=== PATIENT | male | born 1955 | race Caucasian/White ===

== ENCOUNTER 2017-01-08 08:45 | Day surgery (SDC) | payer MEDICARE, BC ==
--- NOTE | 2017-01-08 09:37 | ERNOTE ---
Integumentary HPI - Narrative Date of Service: 01/08/17 - General Presenting Symptoms: other - abscess Time Seen by Provider: 01/08/17 09:24 Source: patient Exam Limitations: no limitations - Immun/Allergies/Home Medications Immunizations: IMMUNIZATION HX Immunizations Up to Date Yes History of Influenza Vaccine Yes Hx Pneumococcal Vaccination Yes Allergies/Adverse Reactions: Allergies Allergy/AdvReac Type Severity Reaction Status Date / Time chocolate flavor Allergy Sneezing Verified 10/20/13 17:13 Home Medications: HOME MEDICATIONS Aspirin [Aspir 81] 81 mg PO DAILY 07/21/12 [Last Taken Unknown] Carvedilol [Coreg] 25 mg PO BID 07/21/12 [Last Taken Unknown] Citalopram Hydrobromide [Celexa] 10 mg PO HS 07/21/12 [Last Taken Unknown] Simvastatin 20 mg PO HS 07/21/12 [Last Taken Unknown] Valsartan [Diovan] 320 mg PO DAILY 07/21/12 [Last Taken Unknown] Levothyroxine Sodium [Synthroid] 50 mcg PO DAILY 10/20/13 [Last Taken Unknown] Ascorbic Acid [Vitamin C] 500 mg PO DAILY 06/29/14 [Last Taken Unknown] Insulin Aspart [Novolog Flexpen] 30 unit SQ AC 06/29/14 [Last Taken Unknown] Insulin Glargine,Hum.rec.anlog [Lantus] 60 unit SQ DAILY 06/29/14 [Last Taken Unknown] Ubidecarenone [Co Q-10] 50 mg PO DAILY 06/29/14 [Last Taken Unknown] - History of Present Illness Narrative: patient has been having a painful swelling near his rectum for a little over 2 weeks. It had drained so he thought it was getting better but since then it has worsened. Pain noted here. He has felt feverish. No vomiting. No CP. Some cough. No abdominal pain. Pain worse with any palpation. Has not seen anyone else for this. Location: Reports: other - perineum Quality: Reports: painful Severity: moderate Modifying Factors - (Improves): Reports: nothing Modifying Factors - (Worsens): Reports: other - palpation Associated Symptoms: Reports: fever Prior Treatment: Denies: recently seen Review of Systems - Review of Systems Constitutional: Absent: fever Respiratory: Present: cough Cardiology: Absent: chest pain Gastrointestinal/Abdominal: Absent: abdominal pain Skin: Present: See HPI Neurological: Absent: weakness All Other Systems: All systems neg except as marked - Patient's Past Medical History Patient History - Medical: Diabetes Type 2 Insulin Dependent Patient History - Cardiac/Respiratory: Hypertension, Sleep Apnea Patient History - Cancer: No Hx of Cancer Patient History - Surgical Procedures: Amputation, Other Patient History - Other: None - Family History Mother Family History - Medical: Father Family History - Medical: - Social History Living Situations: home Abuse History: No History of abuse Psych History: Hx of Depression Smoking Status: Never smoker Do you dip or chew tobacco: Yes - chewing tobacco Alcohol Use: none Drug Use: none - Immunizations Immunizations Up to Date: Yes Hx Pneumococcal Vaccination: Yes History of Influenza Vaccine: Yes Physical Exam - Physical Exam General Appearance: Present: alert, no apparent distress Eye Exam: Normal inspection: bilateral - no conjuntival injection Ears, Nose, Throat: Present: normal ENT inspection Neck: Present: normal inspection Respiratory: Present: no respiratory distress, normal breath sounds, no accessory muscle use Cardiovascular/Chest: Present: regular rate, rhythm Gastrointestinal/Abdominal: Present: normal bowel sounds, nontender, soft Back Exam: Absent: CVA tenderness (R), CVA tenderness (L) Extremity Exam: Present: no edema Neurological Exam: Present: alert, normal mood/affect, no motor/sensory deficits Skin Exam: Present: other - 4cm abscess right perineum which abuts the rectum and tenderness is noted to the rectum too. ED Progress - Results and Orders Patient's Lab Results:: I have reviewed the patient's lab results. - Vital Signs Patient's Vital Signs:: I have reviewed the patient's vital signs. Vital Signs: Vital Signs 01/08/17 08:56 Temperature 36.6 C Pulse Rate 70 Respiratory 18 Rate Blood Pressure 144/65 O2 Sat by Pulse 99 Oximetry - Progress/Reassessment Chief Complaint: Cellulitis Progress Note-Subjective: 01/08/17 10:[address] Padgett who saw the patient in the ED and the patient will be taken to surgery. Departure Clinical Impression: Abscess - Departure Disposition: [facility] Condition: Stable Referrals: Mat Manjarrez MD [Primary Care Provider] -
[2017-01-08 10:05] LABS: Hematocrit 45.7 % (42.0-52.0); Mean Cell Volume 94.4 fl (78-100); Mean Corpuscular Hgb Conc 32.8 g/dl (32-36); Mean Platelet Volume 10.5 fl (6.0-9.5); Platelet Count 259 K/mm3 (150-450); Red Blood Count 4.84 M/mm3 (4.7-6.0); Red Cell Distribution Width 12.7 % (11.5-14.0); White Blood Count 8.5 K/mm3 (4.0-10.5)
[2017-01-08] MEDS ORDERED: RINGERS SOLUTION,LACTATED 1,000 ML IV PRN (10:09)
[2017-01-08 10:17] LABS: Anion Gap 13.4 mmol/L (6.8-13.8); BUN/Creatinine Ratio 14.5 (9.0-21.6); Calcium * 8.8 mg/dL (7.9-10.9); Carbon Dioxide 26.8 mmol/L (24-32.6); Estimated Creat Clear 44.3; Potassium 4.2 mmol/L (3.4-4.6)
--- OUTSIDE RECORDS SUMMARY | 2017-01-08 10:33 | XMS REPORT | Continuity of Care Document ---
:1955 Author Organization [facility] ([facility]) Address [address] [place] [address] Phone [phone] Care Team Providers Name Role Phone LokiMat Primary Care Provider [phone] Source Comments This disclosure is being made pursuant to the Care Everywhere program, applicable federal and state laws, and may not contain all informaitonavailable regarding this patient.[facility] ([facility]) Active Allergies and Adverse Reactions Allergen Noted Date Severity Reactions Comments Chocolate Flavor OTHER sneezing Current Medications Prescription Sig. Disp. Refills Start Date End Date Status ascorbic acid (VITAMIN Take 1,000 mg by mouth Active C) 1,000 mg tablet daily aspirin 81 mg EC Take 81 mg by mouth Active tablet daily simvastatin 40 mg Take 40 mg by mouth Active tablet every evening citalopram 10 mg Take 10 mg by mouth Active tablet daily carvedilol 25 mg Take 25 mg by mouth 2 Active tablet times daily with meals coenzyme Q10 PO Active insulin glargine Inject subcutaneously Active (LanTUS SOLOSTAR) 100 at bedtime unit/mL (3 mL) injection pen valsartan (DIOVAN) 320 Take 320 mg by mouth Active mg tablet daily insulin aspart Inject subcutaneously Active (NovoLOG FLEXPEN) 100 3 times daily before unit/mL (3 mL) meals injection pen SUPPLY BD ULTRA-FINE Inject subcutaneously Active SINDY 32 x 4 MM pen 2 times daily needle cephalexin 500 mg 11/06/2015 Active capsule levothyroxine 50 mcg 09/09/2015 Active tablet Active Problems Problem Noted Date History of retinal detachment 05/07/2015 Lower limb amputation, foot 04/12/2008 Unspecified osteomyelitis, ankle and foot 03/13/2008 Social History Tobacco Use Types Packs/Day Years Used Date Never Smoker Smokeless Tobacco: Current User Chew Tobacco Cessation:Ready to Quit: No; Counseling Given: Yes Comments: Alcohol Use Drinks/Week oz/Week Comments No rare Last Filed Vital Signs Vital Sign Reading Time Taken Blood Pressure 116/72 05/03/2015 7:00 PM CDT Pulse 79 05/03/2015 7:00 PM CDT Temperature 36.3 C (97.3 F) 05/03/2015 6:30 PM CDT Respiratory Rate 16 05/03/2015 6:30 PM CDT Height 1.74 m (5' 8.5") 05/03/2015 2:38 PM CDT Weight 107.502 kg (237 lb) 05/03/2015 2:38 PM CDT Body Mass Index 35.51 05/03/2015 2:38 PM CDT Oxygen Saturation 92% 05/03/2015 6:30 PM CDT Plan of Care Health Maintenance Due Date Last Done Comments HCV Screening 1955 Hepatitis B Vaccine (1 of 3 - Primary Series) 1955 Tdap Vaccine 1964 Lipid Disorder Screening 1971 Td Vaccine 1971 Pneumococcal Vaccine (1 of 1 - PPSV23) 1972 Colonoscopy 2003 Prostate Cancer Screening 2003 Zoster Vaccine 2013 Influenza Vaccine: Seasonal (#1) 04/13/2016 Results from Last 3 Months Not on file
--- OUTSIDE RECORDS SUMMARY | 2017-01-08 10:34 | XMS REPORT | Continuity of Care Document ---
:1955 Author Organization [facility] ([facility]) Address [address] [place] [address] Phone [phone] Care Team Providers Name Role Phone LokiMat Primary Care Provider [phone] Source Comments This disclosure is being made pursuant to the Care Everywhere program, applicable federal and state laws, and may not contain all informaitonavailable regarding this patient.[facility] ([facility]) Active Allergies and Adverse Reactions Allergen Noted [...]
[2017-01-08] MEDS ORDERED: RINGERS SOLUTION,LACTATED 1,000 ML IV ONE (11:11)
[2017-01-08] MEDS ORDERED: CEFOXITIN SODIUM 2 GM in DEXTROSE 5 % IN WATER 100 ML IV PRN ×2 (12:19)
--- NOTE | 2017-01-08 12:50 | HP ---
Chief Complaint - Chief Complaint Date of Service: 01/08/17 Time of Service: 09:35 Chief Complaint: pain and dranage from rectum History of Present Illness: Has had painful swelling near the anus for 2 weeks. Has become worse and started to drain bloody pus---wears a pad - Patient's Past Medical History Patient History - Medical: Cataracts, Diabetes Type 2 Insulin Dependent, Depression Patient History - Cardiac/Respiratory: Hypertension, Sleep Apnea Patient History - Cancer: No Hx of Cancer Patient History - Surgical Procedures: Amputation, Cataracts, Other Patient History - Other: None - Family History Mother Family History - Medical: , No pertinent hx Family History - Cardiac/Respiratory: No pertinent hx Family History - Cancer: No pertinent family hx Father Family History - Medical: , Diabetes Type 2 Family History - Cardiac/Respiratory: No pertinent hx Family History - Cancer: No pertinent family hx - Social History Living Situations: home Abuse History: No History of abuse Psych History: Hx of Depression Smoking Status: Never smoker Do you dip or chew tobacco: Yes - chewing tobacco Alcohol Use: none Drug Use: none - Immunizations Immunizations Up to Date: Yes Hx Pneumococcal Vaccination: Yes History of Influenza Vaccine: Yes Review Of Systems (GEN) - Review of Systems Generalized/Overall Review: Absent: Chills, Fever EENTM: Present: No Symptoms Reported Respiratory: Present: No Symptoms Reported Cardiac: Present: No Symptoms Reported Abdominal: Present: Other - swelling and drainage from around rectum. Absent: Nausea, Vomiting, Abdominal Pain Musculoskeletal: Present: Other - chronic foot problems, with amputations and prior open ulcers---currently healed Neurological: Present: Parasthesia Skin: Present: No Symptoms Reported Immunizations: IMMUNIZATION HX Immunizations Up to Date Yes History of Influenza Vaccine Yes Hx Pneumococcal Vaccination Yes Allergies/Adverse Reactions: Allergies Allergy/AdvReac Type Severity Reaction Status Date / Time chocolate flavor Allergy Sneezing Verified 01/08/17 10:52 Home Medications: HOME MEDICATIONS Aspirin [Aspir 81] 81 mg PO DAILY 07/21/12 [Last Taken Unknown] Carvedilol [Coreg] 25 mg PO BID 07/21/12 [Last Taken 01/08/17 08:00] Citalopram Hydrobromide [Celexa] 10 mg PO HS 07/21/12 [Last Taken Unknown] Simvastatin 20 mg PO HS 07/21/12 [Last Taken Unknown] Valsartan [Diovan] 320 mg PO DAILY 07/21/12 [Last Taken Unknown] Levothyroxine Sodium [Synthroid] 50 mcg PO DAILY 10/20/13 [Last Taken Unknown] Ascorbic Acid [Vitamin C] 500 mg PO DAILY 06/29/14 [Last Taken Unknown] Insulin Aspart [Novolog Flexpen] 30 unit SQ AC 06/29/14 [Last Taken Unknown] Insulin Glargine,Hum.rec.anlog [Lantus] 60 unit SQ DAILY 06/29/14 [Last Taken Unknown] Ubidecarenone [Co Q-10] 50 mg PO DAILY 06/29/14 [Last Taken Unknown] Exam - Exam Vital Signs: Vital Signs - Last Taken Temp 37.0 C 01/08/17 12:20 Pulse 76 01/08/17 12:20 Resp 16 01/08/17 12:20 BP 115/73 01/08/17 12:20 Pulse Ox 92 01/08/17 12:20 Constitutional: Present: Alert, Oriented x3, Cooperative, No distress ENT Exam: Present: normal ENT inspection, other - Mallampati 3 airway Eye Exam: bilateral eye: other - disconjugate gaze Neck: Present: full range of motion, normal inspection Back Exam: Present: no CVA tenderness Respiratory: Present: lungs clear, normal breath sounds Cardiovascular/Chest: Present: regular rate, rhythm, no murmur Peripheral Pulses: carotid (R): 4+, carotid (L): 4+ Abdomen: Present: Normal bowel sounds, soft, nontender /Rectal: Present: Other - 4 cm benito-rectal abscess in the right anterior quadrant with bloody/purulent drainage Extremity: Present: normal range of motion, other - right forefoot amputation, patient reports no open areas. Absent: lower extremity edema Skin Exam: Present: warm/dry, pallor Neurologic: Present: shipping support II-XII nml as tested, normal cerebellar test, other - light touch defecit lower extremities Appearance: Present: appropriate appearance, appropriate insight Eye contact: Present: cooperative, good eye contact, normal speech Thoughts: Present: normal thought pattern Diagnostic Studies: Abnormal Lab Results 01/08/17 01/08/17 Range/Units 09:55 09:55 MPV 10.5 H (6.0-9.5) fl Immature Gran % (Auto) 0.50 H (0.001-0.429) % Immature Gran # (Auto) 0.04 H (0.000-0.0310) K/mm3 Lymphocytes % 17.7 L (20-51) % Sodium 143 H (132-142) mmol/L Plasma Sodium 144 H (130-142) mmol/L Chloride 107 H (97-106) mmol/L BUN 24 H (6-23) mg/dL Creatinine 1.65 H (0.4-1.4) mg/dL Est GFR (Non-Af Amer) 45 L (60-130) mL/min Random Glucose 145 H (70-110) mg/dL Laboratory Results WBC 8.5 K/mm3 (4.0-10.5) 01/08/17 09:55 RBC 4.84 M/mm3 (4.7-6.0) 01/08/17 09:55 Hgb 15.0 gm/dL (13.5-18.0) 01/08/17 09:55 Hct 45.7 % (42.0-52.0) 01/08/17 09:55 MCV 94.4 fl (78-100) 01/08/17 09:55 MCH 31.0 pg (27-31) 01/08/17 09:55 MCHC 32.8 g/dl (32-36) 01/08/17 09:55 RDW 12.7 % (11.5-14.0) 01/08/17 09:55 Plt Count 259 K/mm3 (150-450) 01/08/17 09:55 MPV 10.5 fl (6.0-9.5) H 01/08/17 09:55 Immature Gran % (Auto) 0.50 % (0.001-0.429) H 01/08/17 09:55 Immature Gran # (Auto) 0.04 K/mm3 (0.000-0.0310) H 01/08/17 09:55 Neutrophils % 71.0 % (42-75.0) 01/08/17 09:55 Lymphocytes % 17.7 % (20-51) L 01/08/17 09:55 Monocytes % 8.2 % (0.0-9) 01/08/17 09:55 Eosinophils % 2.1 % (0.0-3.0) 01/08/17 09:55 Basophils % 0.5 % (0.0-1.0) 01/08/17 09:55 Nucleated RBC % 0.0 k/mm3 (0-1) 01/08/17 09:55 Neutrophils # 6.0 K/mm3 (1.3-6.0) 01/08/17 09:55 Lymphocytes # 1.5 k/mm3 (1.5-3.5) 01/08/17 09:55 Monocytes # 0.7 k/mm3 (0.0-1.0) 01/08/17 09:55 Eosinophils # 0.2 k/mm3 (0.0-0.7) 01/08/17 09:55 Absolute Basophils 0.0 k/mm3 (0.0-0.1) 01/08/17 09:55 Sodium 143 mmol/L (132-142) H 01/08/17 09:55 Plasma Sodium 144 mmol/L (130-142) H 01/08/17 09:55 Potassium 4.2 mmol/L (3.4-4.6) 01/08/17 09:55 Chloride 107 mmol/L (97-106) H 01/08/17 09:55 Carbon Dioxide 26.8 mmol/L (24-32.6) 01/08/17 09:55 Anion Gap 13.4 mmol/L (6.8-13.8) 01/08/17 09:55 BUN 24 mg/dL (6-23) H 01/08/17 09:55 Creatinine 1.65 mg/dL (0.4-1.4) H 01/08/17 09:55 Est GFR (Non-Af Amer) 45 mL/min (60-130) L 01/08/17 09:55 BUN/Creatinine Ratio 14.5 (9.0-21.6) 01/08/17 09:55 Random Glucose 145 mg/dL (70-110) H 01/08/17 09:55 Calcium 8.8 mg/dL (7.9-10.9) 01/08/17 09:55 Assessment/Plan - Assessment/Plan (1) Benito-rectal abscess Assessment: Will need OR for I&D. Discussed and consent obtained. SCD's and pre-op Mefoxin IV. Will do through ambulatory surgery Problem: Acute
[2017-01-08] MEDS ORDERED: BUPIVACAINE HCL/EPINEPHRINE 50 ML VIAL IJ ONE ×2 (13:17)
[2017-01-08 14:34] VITALS: BP 126/78
--- NOTE | 2017-01-08 16:16 | OR ---
Operative Report - Dictated Report Narrative: OPERATIVE REPORT DATE OF OPERATION: 01/08/2017 PREOPERATIVE DIAGNOSIS: Perirectal abscess POSTOPERATIVE DIAGNOSIS: 4 x 4 centimeter perirectal abscess OPERATION: Incision and drainage of perirectal abscess with packing SURGEON: Jaxon Padgett MD ANESTHESIA: MAC/local Roddy Hernandez CRNA INDICATIONS FOR PROCEDURE: The patient is a 61-year-old diabetic male who presented to the emergency room with a two-week history of tender swelling near the anus. The area began to drain purulent bloody material. He has a perirectal abscess and is brought for drainage. FINDINGS: 4 x 4 centimeter perirectal abscess in the right anterior quadrant. No evidence of connection to the rectum itself. NARRATIVE OF PROCEDURE: The patient was identified preoperatively and prior to the administration of anesthetic a multidisciplinary timeout was observed. The patient was placed in the left lateral position and intravenous sedation administered. 2 g of intravenous Mefoxin were administered. The perineum was prepped with Betadine solution and isolated with 4 sterile towels. The remainder the patient was covered with a sterile disposable drape. There was a 4 x 4 centimeter fluctuant area in the right anterior quadrant with a point of spontaneous drainage 1.5 cm from the anal verge and 1 cm from the median raphae. Digital rectal exam revealed no mass and produced no additional purulence. The area was infiltrated with 0.5% Marcaine with epinephrine. A small probe was gently placed into the spontaneous opening and the extent of the cavity ascertained. A cruciate skin incision was made. The abscess cavity was then irrigated with 1 L of saline. The cavity was inspected and gently explored with a hemostat. There were no additional loculations. The abscess cavity was superficial, did not involve the sphincter musculature, and did not track toward the examining finger in the rectum. The cavity appeared hemostatic. Sponge, blade and instrument counts were correct. The cavity was packed with 2 inch iodoform gauze. A dressing of ABDs and mesh pants was applied. The operative procedure was terminated at this point. The patient tolerated the anesthetic and procedure well without complication. He was transferred back to the ambulatory surgery area awake and in stable condition. The patient remained stable throughout a period of postoperative observation. He denied discomfort, was able to tolerate po intake and was up without assistance. I shared the operative findings with him and his . He was discharged home with instructions to change the pad as needed. He is to resume those medications as listed in the history and physical exam. He was given a prescription for Augmentin 875/125 mg #14 1 po BID and Percocet 5/325 mg #16 1 po Q4-6hrs prn pain. He has phone numbers to call for questions or problems and a return office appointment was made for 01/09/2017 at 10 AM. Reviewed and electronically signed
== END 2017-01-08 10:31 | disposition home or self-care (01) ==
LOC: CANPREER → ER 08:45 → AMB 10:30
PROVIDERS: ATTEND Surgery
PROC: 0D9P3ZZ Drainage of Rectum, Percutaneous Approach (ICD-10-PCS; principal; 2017-01-08 12:00)
DX: K61.1 Rectal abscess (principal); I10 Essential (primary) hypertension; E11.9 Type 2 diabetes mellitus without complications; F32.9 Major depressive disorder, single episode, unspecified; F17.200 Nicotine dependence, unspecified, uncomplicated; Z68.42 Body mass index [BMI] 45.0-49.9, adult

== ENCOUNTER 2017-08-12 11:28 | Emergency (ER) | payer MEDICARE, BC ==
--- NOTE | 2017-08-12 13:01 | ERNOTE ---
Medical Problem HPI - General Chief Complaint: Diabetes Related Problem Time Seen by Provider: 08/12/17 12:49 - Immun/Allergies/Home Medications Immunizations: IMMUNIZATION HX Immunizations Up to Date Yes History of Influenza Vaccine Yes Hx Pneumococcal Vaccination Yes Allergies/Adverse Reactions: Allergies chocolate flavor Allergy (Verified 01/08/17 10:52) Sneezing Home Medications: HOME MEDICATIONS Aspirin [Aspir 81] 81 mg PO DAILY 07/21/12 [Last Taken Unknown] Carvedilol [Coreg] 25 mg PO BID 07/21/12 [Last Taken 01/08/17 08:00] Citalopram Hydrobromide [Celexa] 10 mg PO HS 07/21/12 [Last Taken Unknown] Simvastatin 20 mg PO HS 07/21/12 [Last Taken Unknown] Valsartan [Diovan] 320 mg PO DAILY 07/21/12 [Last Taken Unknown] Levothyroxine Sodium [Synthroid] 50 mcg PO DAILY 10/20/13 [Last Taken Unknown] Ascorbic Acid [Vitamin C] 500 mg PO DAILY 06/29/14 [Last Taken Unknown] Insulin Aspart [Novolog Flexpen] 30 unit SQ AC 06/29/14 [Last Taken Unknown] Insulin Glargine,Hum.rec.anlog [Lantus] 60 unit SQ DAILY 06/29/14 [Last Taken Unknown] Ubidecarenone [Co Q-10] 50 mg PO DAILY 06/29/14 [Last Taken Unknown] - History of Present History Narrative: Patient had a check up appointment with his doctor this morning and was fasting for that (only had a couple of toast last night for dinner), he still took his Lantus and novolog this morning and was found to have a glucose of <35 at the PCP's office, after receiving food he feels back to normal, has no concerns Review of Systems - Review of Systems Constitutional: Absent: recent illness, fever EYE: Absent: vision changes ENT: Absent: nose congestion, sore throat Respiratory: Absent: shortness of breath Cardiology: Absent: chest pain Gastrointestinal/Abdominal: Absent: nausea, vomiting, abdominal pain Musculoskeletal: Present: no symptoms reported Neurological: Absent: headache - Patient's Past Medical History Patient History - Medical: Cataracts, Diabetes Type 2 Insulin Dependent, Depression Patient History - Cardiac/Respiratory: Hypertension, Sleep Apnea Patient History - Cancer: No Hx of Cancer Patient History - Surgical Procedures: Amputation, Cataracts, Other Patient History - Other: None - Family History Mother Family History - Medical: , No pertinent hx Family History - Cardiac/Respiratory: No pertinent hx Family History - Cancer: No pertinent family hx Father Family History - Medical: , Diabetes Type 2 Family History - Cardiac/Respiratory: No pertinent hx Family History - Cancer: No pertinent family hx - Social History Living Situations: home Abuse History: No History of abuse Psych History: Hx of Depression Smoking Status: Never smoker Do you dip or chew tobacco: Yes - Immunizations Immunizations Up to Date: Yes Hx Pneumococcal Vaccination: Yes History of Influenza Vaccine: Yes Physical Exam - Physical Exam General Appearance: Present: wd/wn, alert, no apparent distress Head Exam: Present: normal inspection, no evidence of injury Respiratory: Present: no respiratory distress, normal breath sounds, no accessory muscle use, lungs clear Cardiovascular/Chest: Present: regular rate, rhythm, no murmur Gastrointestinal/Abdominal: Present: normal bowel sounds Neurological Exam: Present: alert, oriented, normal mood/affect Skin Exam: Present: normal color, warm/dry ED Progress - Vital Signs Patient's Vital Signs:: I have reviewed the patient's vital signs. Vital Signs: Vital Signs 08/12/17 08/12/17 11:36 12:51 Temperature 36.4 C L Pulse Rate 91 91 Respiratory 16 Rate Blood Pressure 114/72 O2 Sat by Pulse 95 Oximetry - Progress/Reassessment Chief Complaint: Diabetes Related Problem Departure Clinical Impression: Hypoglycemia due to type 2 diabetes mellitus - Departure Disposition: Home self-care Condition: Stable Instructions: Hypoglycemia, [id number] Additional Instructions: if you are planing on fasting do not take your short acting insulin check your blood sugars again at home Referrals: Mat Manjarrez MD [Primary Care Provider] -
[2017-08-12 13:09] VITALS: BP 112/78
== END 2017-08-12 13:05 | disposition home or self-care (01) ==
LOC: ER 11:28
DX: E11.649 Type 2 diabetes mellitus with hypoglycemia without coma (principal)

== ENCOUNTER 2017-10-04 19:05 | Emergency (ER) | payer MEDICARE, BC ==
[2017-10-04] MEDS ORDERED: SULFAMETHOXAZOLE/TRIMETHOPRIM 1 TAB TABLET PO ONE (19:28)
[2017-10-04] MEDS ORDERED: SULFAMETHOXAZOLE/TRIMETHOPRIM 1 TAB TABLET ONE (19:30)
[2017-10-04 19:37] VITALS: BP 143/70
--- NOTE | 2017-10-04 19:39 | ERNOTE ---
Head Injury HPI - Narrative Date of Service: 10/04/17 - General Time Seen by Provider: 10/04/17 19:24 - Immun/Allergies/Home Medications Immunization: IMMUNIZATION HX Immunizations Up to Date Yes History of Influenza Vaccine No Hx Pneumococcal Vaccination Yes Allergies/Adverse Reactions: Allergies Allergy/AdvReac Type Severity Reaction Status Date / Time chocolate flavor Allergy Sneezing Verified 10/04/17 19:20 Home Medications: HOME MEDICATIONS Aspirin [Aspir 81] 81 mg PO DAILY 07/21/12 [Last Taken Unknown] Carvedilol [Coreg] 25 mg PO BID 07/21/12 [Last Taken 01/08/17 08:00] Citalopram Hydrobromide [Celexa] 10 mg PO HS 07/21/12 [Last Taken Unknown] Simvastatin 20 mg PO HS 07/21/12 [Last Taken Unknown] Valsartan [Diovan] 320 mg PO DAILY 07/21/12 [Last Taken Unknown] Levothyroxine Sodium [Synthroid] 50 mcg PO DAILY 10/20/13 [Last Taken Unknown] Ascorbic Acid [Vitamin C] 500 mg PO DAILY 06/29/14 [Last Taken Unknown] Insulin Aspart [Novolog Flexpen] 30 unit SQ AC 06/29/14 [Last Taken Unknown] Insulin Glargine,Hum.rec.anlog [Lantus] 60 unit SQ DAILY 06/29/14 [Last Taken Unknown] Ubidecarenone [Co Q-10] 50 mg PO DAILY 06/29/14 [Last Taken Unknown] Sulfamethoxazole/Trimethoprim [Bactrim Ds] 1 tab PO BID #28 tab 10/04/17 [Last Taken Unknown] oxyCODONE HCL/ACETAMINOPHEN [Percocet 5 MG/325 MG] 1 tab PO Q4H PRN #10 tab [Last Taken Unknown] - History of Present Illness Narrative: Pt. comes in with c/o lump on the R side of his neck that started small a few days ago but became large starting today. Pt. states that it is painful but denies any fever, SOB, CP, NVD, alleviating factors or prehospital treatment. Pt. has had abscesses in the past but they are usually softer. Review of Systems - Review of Systems Constitutional: Present: no symptoms reported. Absent: fever, chills, weakness , fatigue, malaise EYE: Present: no symptoms reported ENT: Present: no symptoms reported Respiratory: Present: no symptoms reported. Absent: shortness of breath, cough , wheezing Cardiology: Present: no symptoms reported. Absent: chest pain, palpitations, edema Gastrointestinal/Abdominal: Present: no symptoms reported. Absent: nausea, vomiting, diarrhea Genitourinary: Present: no symptoms reported. Absent: frequency, decreased urinary output Musculoskeletal: Present: no symptoms reported. Absent: back pain, joint pain Skin: Present: lumps - R lateral soft tissue neck Neurological: Present: no symptoms reported. Absent: headache, dizziness/light- headedness, weakness, numbness, tingling Hematologic/Lymphatic: Present: no symptoms reported. Absent: easy bruising, easy bleeding All Other Systems: All systems neg except as marked - Patient's Past Medical History Patient History - Medical: Cataracts, Diabetes Type 2 Insulin Dependent, Depression Patient History - Cardiac/Respiratory: Hypertension, Sleep Apnea Patient History - Cancer: No Hx of Cancer Patient History - Surgical Procedures: Amputation, Cataracts, Other Patient History - Other: None - Family History Mother Family History - Medical: , No pertinent hx Family History - Cardiac/Respiratory: No pertinent hx Family History - Cancer: No pertinent family hx Father Family History - Medical: , Diabetes Type 2 Family History - Cardiac/Respiratory: No pertinent hx Family History - Cancer: No pertinent family hx - Social History Living Situations: home Abuse History: No History of abuse Psych History: Hx of Depression Smoking Status: Never smoker Do you dip or chew tobacco: Yes - 1 can/ day Alcohol Use: none Drug Use: none - Immunizations Immunizations Up to Date: Yes Hx Pneumococcal Vaccination: Yes History of Influenza Vaccine: No Physical Exam - Physical Exam General Appearance: Present: wd/wn, alert, no apparent distress Head Exam: Present: normal inspection, no evidence of injury Eye Exam: Normal inspection: bilateral Neck: Present: normal inspection, supple, full range of motion, tender lateral - over abscess Respiratory: Present: no respiratory distress, normal breath sounds, no accessory muscle use, chest nontender, lungs clear Cardiovascular/Chest: Present: regular rate, rhythm, no murmur, normal peripheral pulses Gastrointestinal/Abdominal: Present: normal bowel sounds Back Exam: Present: normal inspection Extremity Exam: Present: normal inspection, non-tender, normal range of motion, no edema Neurological Exam: Present: alert, oriented, normal mood/affect, no motor/ sensory deficits Skin Exam: Present: normal color, warm/dry, other - solid tender reddened non mobile abscess R lateral soft tssue of neck 3 cm in diameter no drainage ED Progress - Date and Time Seen: Date and Time: 10/04/17 19:38 As abscess is firm it is not ready for I and D yet will start abx and then educated pt to follow up with his PCP or return here when it softens - Vital Signs Patient's Vital Signs:: I have reviewed the patient's vital signs. Vital Signs: Vital Signs 10/04/17 19:16 Temperature 36.7 C Pulse Rate 72 Respiratory 15 Rate Blood Pressure 150/75 O2 Sat by Pulse 97 Oximetry - Progress/Reassessment Chief Complaint: Neck Pain/Injury Progress:: Unchanged Departure Clinical Impression: Abscess - Departure Disposition: Home self-care Condition: Good Instructions: Abscess, [id number] Additional Instructions: Apply warm compresses twice a day and if not draining in 2-3 days when it softens up please follow up with primary provider or return to the ER for drainage. Referrals: Mat Manjarrez MD [Primary Care Provider] - Prescriptions: oxyCODONE HCL/ACETAMINOPHEN [Percocet 5 MG/325 MG] 1 tab PO Q4H PRN #10 tab PRN Reason: Pain Sulfamethoxazole/Trimethoprim [Bactrim Ds] 1 tab PO BID #28 tab
== END 2017-10-04 19:36 | disposition home or self-care (01) ==
LOC: ER 19:05
DX: I10 Essential (primary) hypertension; Z79.4 Long term (current) use of insulin

== ENCOUNTER 2017-10-11 09:36 | Emergency (ER) | payer MEDICARE, BC ==
[2017-10-11] MEDS ORDERED: DEXTROSE 50%-WATER 50 ML SYRG IV ONE (09:49)
--- NOTE | 2017-10-11 10:25 | ERNOTE ---
Medical Problem HPI - General Chief Complaint: Diabetes Related Problem Time Seen by Provider: 10/11/17 09:41 Source: patient Exam Limitations: clinical condition - Immun/Allergies/Home Medications Immunizations: IMMUNIZATION HX Immunizations Up to Date Yes History of Influenza Vaccine No Hx Pneumococcal Vaccination Yes Allergies/Adverse Reactions: Allergies chocolate flavor Allergy (Verified 10/04/17 19:20) Sneezing Home Medications: HOME MEDICATIONS Aspirin [Aspir 81] 81 mg PO DAILY 07/21/12 [Last Taken Unknown] Carvedilol [Coreg] 25 mg PO BID 07/21/12 [Last Taken 01/08/17 08:00] Citalopram Hydrobromide [Celexa] 10 mg PO HS 07/21/12 [Last Taken Unknown] Simvastatin 20 mg PO HS 07/21/12 [Last Taken Unknown] Valsartan [Diovan] 320 mg PO DAILY 07/21/12 [Last Taken Unknown] Levothyroxine Sodium [Synthroid] 50 mcg PO DAILY 10/20/13 [Last Taken Unknown] Ascorbic Acid [Vitamin C] 500 mg PO DAILY 06/29/14 [Last Taken Unknown] Insulin Aspart [Novolog Flexpen] 30 unit SQ AC 06/29/14 [Last Taken Unknown] Insulin Glargine,Hum.rec.anlog [Lantus] 60 unit SQ DAILY 06/29/14 [Last Taken Unknown] Ubidecarenone [Co Q-10] 50 mg PO DAILY 06/29/14 [Last Taken Unknown] Sulfamethoxazole/Trimethoprim [Bactrim Ds] 1 tab PO BID #28 tab 10/04/17 [Last Taken Unknown] oxyCODONE HCL/ACETAMINOPHEN [Percocet 5 MG/325 MG] 1 tab PO Q4H PRN #10 tab [Last Taken Unknown] - History of Present History Narrative: Patient has been treated for a neck abscess in urgent care and showed up today and his blood sugar was found to be 30. A variety of treatments were tried there however his blood sugar remained intransigent to treatment so he was sent over to the emergency room. Patient admits to continuing to take his diabetes medicine, however he has not been eating. Timing: constant Severity: moderate Review of Systems - Review of Systems Constitutional: Present: See HPI EYE: Present: no symptoms reported ENT: Present: no symptoms reported Respiratory: Present: no symptoms reported Cardiology: Present: no symptoms reported Gastrointestinal/Abdominal: Present: no symptoms reported Genitourinary: Present: no symptoms reported Musculoskeletal: Present: no symptoms reported Skin: Present: other - healing neck abscess Neurological: Present: no symptoms reported Endocrine: Present: See HPI Hematologic/Lymphatic: Present: no symptoms reported Psych: Present: no symptoms reported - Patient's Past Medical History Patient History - Medical: Cataracts, Diabetes Type 2 Insulin Dependent, Depression Patient History - Cardiac/Respiratory: Hypertension, Sleep Apnea Patient History - Cancer: No Hx of Cancer Patient History - Surgical Procedures: Amputation, Cataracts, Other Patient History - Other: None - Family History Mother Family History - Medical: , No pertinent hx Family History - Cardiac/Respiratory: No pertinent hx Family History - Cancer: No pertinent family hx Father Family History - Medical: , Diabetes Type 2 Family History - Cardiac/Respiratory: No pertinent hx Family History - Cancer: No pertinent family hx - Social History Living Situations: home Abuse History: No History of abuse Psych History: Hx of Depression Smoking Status: Never smoker Have you smoked in the past 12 months: No Do you dip or chew tobacco: Yes Alcohol Use: sober Drug Use: none - Immunizations Immunizations Up to Date: Yes Hx Pneumococcal Vaccination: Yes History of Influenza Vaccine: No Physical Exam - Physical Exam General Appearance: Present: wd/wn, alert, mild distress, other - patient was hypothermic Head Exam: Present: normal inspection, no evidence of injury Eye Exam: Normal inspection: bilateral, PERRL: bilateral Ears, Nose, Throat: Present: normal ENT inspection, H, normal pharynx Neck: Present: nontender, other - healing neck abscess Respiratory: Present: no respiratory distress, normal breath sounds, no accessory muscle use, chest nontender, lungs clear Cardiovascular/Chest: Present: no murmur, normal peripheral pulses, bradycardia Gastrointestinal/Abdominal: Present: normal bowel sounds, nontender, nondistended, soft, no organomegaly Rectal Exam: Present: deferred Back Exam: Present: normal inspection, normal range of motion Extremity Exam: Present: normal inspection, non-tender, no edema, normal range of motion Neurological Exam: Present: alert, oriented, normal mood/affect, other - patient is somewhat slow to response, likely secondary to the hypoglycemia Skin Exam: Present: normal color, warm/dry Lymphatic Exam: Present: no adenopathy ED Progress - Results and Orders Patient's Lab Results:: I have reviewed the patient's lab results. - Vital Signs Patient's Vital Signs:: I have reviewed the patient's vital signs. Vital Signs: Vital Signs 10/11/17 10/11/17 09:41 09:49 Temperature 33.6 C L 33.6 C L Pulse Rate 55 L 55 L Respiratory 10 L 10 L Rate Blood Pressure 105/65 105/65 O2 Sat by Pulse 97 97 Oximetry - Progress/Reassessment Chief Complaint: Diabetes Related Problem Plan - Plan Plan: Patient's blood sugars appear to have stabilized. He did eat a cheeseburger, macaroni and cheese and broccoli while in emergency department. As his blood sugar stabilized his temperature also started to improve. Departure Clinical Impression: Hypoglycemia due to type 2 diabetes mellitus - Departure Disposition: Home self-care Condition: Good Instructions: Hypoglycemia, [id number] Additional Instructions: While you're taking your medications for your diabetes is mandatory that you also eat Referrals: Mat Manjarrez MD [Primary Care Provider] -
[2017-10-12 08:33] VITALS: BP 101/60
== END 2017-10-11 11:15 | disposition home or self-care (01) ==
LOC: ER 09:36
DX: E11.649 Type 2 diabetes mellitus with hypoglycemia without coma (principal)

== ENCOUNTER 2017-10-12 13:45 | Emergency (ER) | payer MEDICARE, BC ==
[2017-10-12 14:14] LABS: Mean Cell Volume 95.1 fl (78-100); Mean Corpuscular Hemoglobin 31.1 pg (27-31); Mean Corpuscular Hgb Conc 32.7 g/dl (32-36); Neutrophil # 7.5 K/mm3 (1.3-6.0); Neutrophil % 62.8 % (42-75.0); Platelet Count 235 K/mm3 (150-450); Red Blood Count 5.15 M/mm3 (4.7-6.0); Red Cell Distribution Width 14.2 % (11.5-14.0); White Blood Count 11.9 K/mm3 (4.0-10.5)
[2017-10-12 14:28] LABS: Hemoglobin A1C 7.7 % (4.00-6.0)
[2017-10-12 14:29] LABS: Albumin * 3.2 gm/dl (3.4-5.0); Anion Gap 10.8 mmol/L (6.8-13.8); BUN/Creatinine Ratio 12.5 (9.0-21.6); Bilirubin, Total 0.5 mg/dL (0.0-1.1); Ca. Corrected For Albumin 9.8 mg/dL (8.4-10.2); Calcium * 9.5 mg/dL (7.9-10.9); Carbon Dioxide 28.5 mmol/L (24-32.6); Magnesium 2.5 mg/dL (1.2-2.8); Potassium 4.3 mmol/L (3.4-4.6); Total Protein 8.1 gm/dL (6.2-8.2)
[2017-10-12] MEDS ORDERED: DEXTROSE 50%-WATER 50 ML SYRG ONE (14:31)
[2017-10-12] MEDS: DEXTROSE 50%-WATER 50 ML SYRG IV ONE (14:38)
--- NOTE | 2017-10-12 14:46 | ERNOTE ---
Medical Problem HPI - General Chief Complaint: Diabetes Related Problem Time Seen by Provider: 10/12/17 13:52 Source: patient, family, EMS Exam Limitations: other - initial hypoglycemia - Immun/Allergies/Home Medications Immunizations: IMMUNIZATION HX Immunizations Up to Date Yes History of Influenza Vaccine No Hx Pneumococcal Vaccination Yes Allergies/Adverse Reactions: Allergies chocolate flavor Allergy (Verified 10/12/17 13:58) Sneezing Home Medications: HOME MEDICATIONS Aspirin [Aspir 81] 81 mg PO DAILY 07/21/12 [Last Taken Unknown] Carvedilol [Coreg] 25 mg PO BID 07/21/12 [Last Taken 01/08/17 08:00] Citalopram Hydrobromide [Celexa] 10 mg PO HS 07/21/12 [Last Taken Unknown] Simvastatin 20 mg PO HS 07/21/12 [Last Taken Unknown] Valsartan [Diovan] 320 mg PO DAILY 07/21/12 [Last Taken Unknown] Levothyroxine Sodium [Synthroid] 50 mcg PO DAILY 10/20/13 [Last Taken Unknown] Ascorbic Acid [Vitamin C] 500 mg PO DAILY 06/29/14 [Last Taken Unknown] Insulin Aspart [Novolog Flexpen] 30 unit SQ AC 06/29/14 [Last Taken Unknown] Insulin Glargine,Hum.rec.anlog [Lantus] 60 unit SQ DAILY 06/29/14 [Last Taken Unknown] Ubidecarenone [Co Q-10] 50 mg PO DAILY 06/29/14 [Last Taken Unknown] Sulfamethoxazole/Trimethoprim [Bactrim Ds] 1 tab PO BID #28 tab 10/04/17 [Last Taken Unknown] oxyCODONE HCL/ACETAMINOPHEN [Percocet 5 MG/325 MG] 1 tab PO Q4H PRN #10 tab [Last Taken Unknown] - History of Present History Narrative: Patient was seen here yesterday for hypoglycemic episode where he was continuing to take his insulin and not eating. He went home today and continued similar behavior despite fairly specific instructions from me yesterday. Patient presents once again with confusion secondary to hypoglycemia. Timing: constant Severity: moderate Review of Systems - Review of Systems Constitutional: Present: See HPI EYE: Present: no symptoms reported ENT: Present: no symptoms reported Respiratory: Present: no symptoms reported Cardiology: Present: no symptoms reported Gastrointestinal/Abdominal: Present: no symptoms reported Genitourinary: Present: no symptoms reported Musculoskeletal: Present: no symptoms reported Skin: Present: no symptoms reported Neurological: Present: no symptoms reported Endocrine: Present: See HPI Hematologic/Lymphatic: Present: no symptoms reported Psych: Present: no symptoms reported - Patient's Past Medical History Patient History - Medical: Cataracts, Diabetes Type 2 Insulin Dependent, Depression Patient History - Cardiac/Respiratory: Hypertension, Sleep Apnea Patient History - Cancer: No Hx of Cancer Patient History - Surgical Procedures: Amputation, Cataracts, Other Patient History - Other: None - Family History Mother Family History - Medical: , No pertinent hx Family History - Cardiac/Respiratory: No pertinent hx Family History - Cancer: No pertinent family hx Father Family History - Medical: , Diabetes Type 2 Family History - Cardiac/Respiratory: No pertinent hx Family History - Cancer: No pertinent family hx - Social History Living Situations: spouse Abuse History: No History of abuse Psych History: Hx of Depression Smoking Status: Never smoker Have you smoked in the past 12 months: No Do you dip or chew tobacco: Yes Alcohol Use: none Drug Use: none - Immunizations Immunizations Up to Date: Yes Hx Pneumococcal Vaccination: Yes History of Influenza Vaccine: No Physical Exam - Physical Exam General Appearance: Present: wd/wn, alert, mild distress Head Exam: Present: normal inspection, no evidence of injury Eye Exam: Normal inspection: bilateral, PERRL: bilateral Ears, Nose, Throat: Present: normal ENT inspection, H, normal pharynx Neck: Present: normal inspection, nontender Respiratory: Present: no respiratory distress, normal breath sounds, no accessory muscle use, chest nontender, lungs clear Cardiovascular/Chest: Present: regular rate, rhythm, no murmur, normal peripheral pulses Gastrointestinal/Abdominal: Present: normal bowel sounds, nontender, nondistended, soft, no organomegaly Rectal Exam: Present: deferred Back Exam: Present: normal inspection, normal range of motion Extremity Exam: Present: normal inspection, non-tender, no edema, normal range of motion Neurological Exam: Present: alert, oriented, normal mood/affect, other - patient was given 1 amp of D50 and had already started improved by the time he came to the door Skin Exam: Present: normal color, warm/dry Lymphatic Exam: Present: no adenopathy ED Progress - Results and Orders Patient's Lab Results:: I have reviewed the patient's lab results. - Vital Signs Patient's Vital Signs:: I have reviewed the patient's vital signs. Vital Signs: Vital Signs 10/12/17 10/12/17 13:46 14:20 Temperature 35.6 C L Pulse Rate 62 60 Respiratory 15 18 Rate Blood Pressure 149/82 125/57 O2 Sat by Pulse 98 97 Oximetry - Progress/Reassessment Chief Complaint: Diabetes Related Problem Progress:: Improved Plan - Plan Plan: Given that the patient is a hemoglobin A1c of 7.7 I suspect this is more of a transient effect of hypoglycemia. For right now we are going to decrease both his Lantus and his NovoLog and have him follow-up with Dr. Manjarrez. Patient was given further instructions once again of the need to eat when he takes his insulin and both he and the family appeared to understand once again. Patient has family have agreed to do blood sugars both before meals and at bedtime and to call his family doctor for follow-up and adjustment of his insulin hopefully back to his previous regimen or as needed. Departure Clinical Impression: Hypoglycemia due to type 2 diabetes mellitus - Departure Disposition: Home self-care Condition: Good Instructions: Hypoglycemia, [id number] Additional Instructions: Decrease her Lantus to 50 units in the morning and your NovoLog to 20 units in the morning and in the evening. Call Dr. Manjarrez for appointment
[2017-10-12 15:15] VITALS: BP 100/55
== END 2017-10-12 15:06 | disposition home or self-care (01) ==
LOC: ER 13:45
DX: E11.649 Type 2 diabetes mellitus with hypoglycemia without coma (principal); E11.65 Type 2 diabetes mellitus with hyperglycemia; Z79.4 Long term (current) use of insulin; I10 Essential (primary) hypertension